=== PATIENT | male | born 1935 | race Caucasian/White ===

== ENCOUNTER 2020-01-19 13:12 | Outpatient (CLI) | payer MEDICARE, BC | END 2020-01-19 23:59 | disposition home or self-care (01) | LOC: VAS 13:12 | PROVIDERS: ATTEND Surgery | DX: I70.209 Unspecified atherosclerosis of native arteries of extremities, unspecified extremity (principal) | CPT/HCPCS: 93922; 93925 ==

== ENCOUNTER 2020-02-27 05:53 | Day surgery (SDC) | payer MEDICARE, BC ==
[2020-02-26 09:56] LABS: BASOPHILS % (AUTO) 0.7 % (0-1); EOSINOPHILS # (AUTO) 0.3 X10'3 (0-0.9); HEMATOCRIT 44.6 % (42.0-52.0); HEMOGLOBIN 14.9 g/dl (14.0-17.9); LYMPHOCYTES # (AUTO) 1.5 X10'3 (1.1-4.8); LYMPHOCYTES % (AUTO) 21.8 % (21-51); MEAN CORPUSCULAR HEMOGLOBIN 31.4 PG (27.0-31.0); MEAN CORPUSCULAR HGB CONC 33.5 g/dL (33.0-36.5); MEAN CORPUSCULAR VOLUME 93.6 FL (78-98); MEAN PLATELET VOLUME 8.7 FL (7.4-10.4); MONOCYTES # (AUTO) 0.6 X10'3 (0-0.9); MONOCYTES % (AUTO) 8.6 % (2-12); NEUTROPHILS # (AUTO) 4.3 X10'3 (1.8-7.7); NEUTROPHILS % (AUTO) 63.9 % (42-75); PLATELET COUNT 248 X10'3 (140-440); RED BLOOD COUNT 4.76 X10'6 (4.70-6.10); RED CELL DISTRIBUTION WIDTH 14.5 % (11.5-14.5); WHITE BLOOD COUNT 6.7 X10'3 (4.5-11.0)
[2020-02-26 10:03] LABS: ALBUMIN 3.3 G/DL (3.4-5.0); ANION GAP 2 (8-16); BLOOD UREA NITROGEN 16 MG/DL (7-18); BUN/CREATININE RATIO 16.2 (5.4-32.0); CALCIUM 10.7 MG/DL (8.5-10.1); CHLORIDE 108 MMOL/L (99-107); CREATININE 0.99 MG/DL (0.60-1.10); GLUCOSE 121 MG/DL (70-104); POTASSIUM 4.1 MMOL/L (3.5-5.1); SODIUM 142 MMOL/L (135-145); TOTAL CARBON DIOXIDE 31.7 MMOL/L (24-32); eGFR 72 ML/MIN
[2020-02-26 10:06] LABS: PARTIAL THROMBOPLASTIN TIME 26 SECONDS (22-32)
[2020-02-27] VITALS (14 sets, daily range): BP systolic 128–172; BP diastolic 71–95
[~2020-02-27] VITALS: Ht 172.7 cm; Wt 77.2 kg
[2020-02-27] MEDS ORDERED: cefazolin/dext.iso 2gm/100ml 100 ML IV ONE (06:15)
[2020-02-27] MEDS ORDERED: CLINDAMYCIN/D5W 900mg/50ml 50 ML IV ONE (06:15)
[2020-02-27] MEDS ORDERED: GABA-530 PO (07:10)
[2020-02-27] MEDS ORDERED: CARB1TAB42 PO (07:10)
[2020-02-27] MEDS ORDERED: SOTA80TA PO (07:10)
[2020-02-27] MEDS ORDERED: CARB1TAB44 PO (07:10)
[2020-02-27] MEDS ORDERED: APIX5TAB5 PO (07:20)
[2020-02-27] MEDS ORDERED: CYAN250010 PO (07:20)
[2020-02-27] MEDS ORDERED: TRAM50TA2 PO (07:20)
[2020-02-27] MEDS ORDERED: midazolam 2 mg/2 ml injection ONE ×2 (07:36→09:02)
[2020-02-27] MEDS ORDERED: fentaNYL/PF 50MCG/1 ML 2ML syringe ONE ×2 (07:36→09:02)
[2020-02-27] MEDS ORDERED: LIDOcaine 1% W/epiNEPHrine 1:100,000 20ml vial ONE ×2 (07:37→08:27)
[2020-02-27] MEDS ORDERED: ceFAZolin 1000mg inj ONE (07:37)
[2020-02-27] MEDS ORDERED: clindamycin phosphate 150mg/ml inj. ONE (08:03)
[2020-02-27] MEDS ORDERED: HYDROcodone/acetaminophen 5mg/325mg tablet PO PRN (10:10)
[2020-02-27] MEDS ORDERED: HYDROcodone/acetaminophen 10/325mg tab PO PRN (10:10)
[2020-02-27] MEDS ORDERED: vancomycin/NS 1 GM ADD-VANTAGE 250 ML IV ONE (12:00)
[2020-02-27] MEDS ORDERED: clindamycin 600mg/D5W 50ml IVPB IV SCH (16:00)
== END 2020-02-27 15:00 | disposition home or self-care (01) ==
LOC: MED 3N 05:53 → U 05:53
PROVIDERS: ATTEND Internal Medicine Cardiovascular Disease
DX: I49.5 Sick sinus syndrome (principal); I25.10 Atherosclerotic heart disease of native coronary artery without angina pectoris; I10 Essential (primary) hypertension; E78.5 Hyperlipidemia, unspecified; I48.0 Paroxysmal atrial fibrillation; Z79.899 Other long term (current) drug therapy
CPT/HCPCS: 33208; 36415; 71045; 80048; 85025; 85610; 85730; 93005; 99152; 99153; C1785; C1894; C1898; J0690; J2250; J3010; J3370; J3490; 33217; A4565; A4620; A6449

== ENCOUNTER 2020-05-29 12:59 | Outpatient (CLI) | payer MEDICARE, BC ==
[~2020-05-29 12:59] MED LIST: APIX5TAB5 PO; CARB1TAB42 PO; CARB1TAB44 PO; CYAN250010 PO; GABA-530 PO; SOTA80TA PO; TRAM50TA2 PO
== END 2020-05-29 23:59 | disposition home or self-care (01) ==
LOC: RAD 12:59
PROVIDERS: ATTEND Psychiatry & Neurology Neurology
DX: K21.9 Gastro-esophageal reflux disease without esophagitis (principal); R47.1 Dysarthria and anarthria; R49.0 Dysphonia; R13.14 Dysphagia, pharyngoesophageal phase; R13.12 Dysphagia, oropharyngeal phase; G20 Parkinson's disease; Z88.0 Allergy status to penicillin
CPT/HCPCS: 74230